=== PATIENT | female | born 1985 | race Caucasian/White ===

== ENCOUNTER → 2023-02-18 | Outpatient (CLI) | payer BC ==
[~2023-02-18] MED LIST: INDERAL 10MG10 MG PO; LEXAPRO 10MG10 MG PO; PRENATAL TABLET PO; VITAMIN B COMPL1 SGL PO; VITAMIN D31000 I1; WELLBUTRIN XL150 MG PO; WELLBUTRIN XL300 M1 PO
== END ==
LOC: CANSCHCLI → MC.RAD 11:20
DX: Z12.31 Encounter for screening mammogram for malignant neoplasm of breast (principal); N63.11 Unspecified lump in the right breast, upper outer quadrant

== ENCOUNTER → 2023-03-03 | Outpatient (CLI) | payer BC | LOC: MC.RAD 08:57 | DX: N63.10 Unspecified lump in the right breast, unspecified quadrant (principal) ==